=== PATIENT | female | born 1995 | race African-American/Black ===

== ENCOUNTER 2017-05-19 19:39 | Emergency (ER) | payer BC, OTHER ==
--- NOTE | 2017-05-19 21:18 | ER Document Report ---
HPI - HPI Patient complains to provider of: Left thumb cut Onset: This evening Onset/Duration: Sudden Pain Level: 3 Context: 22-year-old right-handed female with unknown tetanus status cut her left thumb while cooking dinner tonight. Associated Symptoms: None Exacerbated by: Movement Relieved by: Denies Similar symptoms previously: No Recently seen / treated by doctor: No - ROS ROS below otherwise negative: Yes Systems Reviewed and Negative: Yes All other systems reviewed and negative Past Medical History - General Information source: Patient - Social History Smoking Status: Never Smoker Frequency of alcohol use: None Drug Abuse: None Occupation: Unemployed Lives with: Spouse/Significant other Family History: None Patient has suicidal ideation: No Patient has homicidal ideation: No - Medical History Medical History: Negative Renal/ Medical History: Denies: Hx Peritoneal Dialysis Surgical Hx: Negative Vertical Provider Document - CONSTITUTIONAL Agree With Documented VS: Yes Exam Limitations: No Limitations - INFECTION CONTROL TRAVEL OUTSIDE OF THE [place] IN LAST 30 DAYS: No - HEENT HEENT: Normocephalic - NECK Neck: Supple - RESPIRATORY O2 Sat by Pulse Oximetry: 99 - MUSCULOSKELETAL/EXTREMETIES Musculoskeletal/Extremeties: MAEW, FROM, Tender - NEURO Level of Consciousness: Awake, Alert, Appropriate - DERM Integumentary: Laceration - 3 mm flap cut left tumb radial side of thumb tip, 1mm deep Course - Vital Signs Vital signs: Temp Pulse Resp BP Pulse Ox 98.3 F 78 16 106/57 L 99 05/19/17 19:49 05/19/17 19:49 05/19/17 19:49 05/19/17 19:49 05/19/17 19:49 Discharge - Discharge Clinical Impression: Minor left thumb cut Condition: Good Disposition: HOME, SELF-CARE Instructions: Acetaminophen, Antibiotic Ointment Protection ([facility]), Soap Cleansing ([facility]), Tetanus Immunization Given ([facility]) Additional Instructions: keep clean, soap and water daily, bacitracin, non stick dressing to er any signs of infection or concerns Please complete the patient satisfaction survey if you get one, and return it.. If you do not receive a survey, then you can go to the [facility] website, [email or web address] and place your comments about your very good care. Thank you very much. It was a pleasure being your medical provider today.
[2017-05-19] MEDS ORDERED: DIPH/PERTUSS(ACELL)/TETANUS VAC/PF 0.5 ML SYR (>=10YO) IM ONE (21:21)
[2017-05-19 21:48] VITALS: BP 97/45
== END 2017-05-19 21:45 | disposition home or self-care (01) ==
LOC: ER 19:39
DX: S61.021A Laceration with foreign body of right thumb without damage to nail, initial encounter (principal); W45.8XXA Other foreign body or object entering through skin, initial encounter; Y93.G3 Activity, cooking and baking; Z23 Encounter for immunization
CPT/HCPCS: 90471; 90715; 99283

== ENCOUNTER 2017-11-10 11:37 | Emergency (ER) | payer BC, OTHER ==
[2017-11-10 11:51] VITALS: BP 112/67
[2017-11-10] MEDS ORDERED: IBUPROFEN 800 MG TABLET PO ONE (11:56)
[2017-11-10] MEDS ORDERED: DEXAMETHASONE 4 MG TABLET PO ONE (11:56)
--- NOTE | 2017-11-10 12:00 | ER Document Report ---
ED ENT - General Chief Complaint: Sore Throat Stated Complaint: EAR/THROAT PAIN Time Seen by Provider: 11/10/17 11:56 Mode of Arrival: Ambulatory Information source: Patient Notes: 22-year-old female presents to ED for complaint of sore throat and right ear pain started yesterday. She states she had a fever of 103 yesterday 101 today. Her temperature in the emergency room is 99.1. Other vital signs are all stable. She has a negative medical history. She has never smoked never drank and works at a [employer]. States her last menstrual period was last week. TRAVEL OUTSIDE OF THE [place] IN LAST 30 DAYS: No - HPI Patient complains to provider of: Ear problem, Throat problem Onset: Yesterday Onset/Duration: Gradual Quality of pain: Sharp Severity: Moderate Pain Level: 3 Context: Recent Illness Location of pain: Ears, Nose, Sinus, Throat Associated symptoms: Ear pain, Fever, Runny nose, Sinus drainage, Sore throat Similar symptoms previously: Yes Recently seen / treated by doctor: No - Related Data Allergies/Adverse Reactions: No Known Allergies Allergy (Verified 11/10/17 11:42) Past Medical History - General Information source: Patient - Social History Smoking Status: Never Smoker Cigarette use (# per day): No Chew tobacco use (# tins/day): No Smoking Education Provided: No Frequency of alcohol use: None Drug Abuse: None Lives with: Spouse/Significant other Family History: None Patient has suicidal ideation: No Patient has homicidal ideation: No - Past Medical History Cardiac Medical History: Reports: None Pulmonary Medical History: Reports: None EENT Medical History: Reports: None Neurological Medical History: Reports: None Endocrine Medical History: Reports: None Renal/ Medical History: Reports: None Malignancy Medical History: Reports: None GI Medical History: Reports: None Musculoskeltal Medical History: Reports None Skin Medical History: Reports None Psychiatric Medical History: Reports: None Traumatic Medical History: Reports: None Infectious Medical History: Reports: None Surgical Hx: Negative Past Surgical History: Reports: None - Immunizations Immunizations up to date: Yes Review of Systems - Review of Systems Constitutional: Chills, Fever, Recent illness EENT: Ear pain, Nose discharge, Sinus discharge, Throat pain Cardiovascular: No symptoms reported Respiratory: No symptoms reported Gastrointestinal: No symptoms reported Genitourinary: No symptoms reported Female Genitourinary: No symptoms reported Musculoskeletal: No symptoms reported Skin: No symptoms reported Hematologic/Lymphatic: No symptoms reported Neurological/Psychological: No symptoms reported -: Yes All other systems reviewed and negative Physical Exam - Vital signs Vitals: Temp Pulse Resp BP Pulse Ox 99.1 F 80 18 112/67 99 11/10/17 11:48 11/10/17 11:48 11/10/17 11:48 11/10/17 11:48 11/10/17 11:48 Interpretation: Normal - General General appearance: Appears well, Alert - HEENT Head: Normocephalic, Atraumatic Eyes: Normal Pupils: PERRL Ears: Normal External canal: Normal Tympanic membrane: Normal Sinus: Normal Nasal: Purulent discharge, Swelling Mouth/Lips: Normal Mucous membranes: Normal Pharynx: Post nasal drainage, Tonsillar hypertrophy. No: Erythema, Exudate Neck: Anterior cervical chain - Respiratory Respiratory status: No respiratory distress Chest status: Nontender Breath sounds: Normal Chest palpation: Normal - Cardiovascular Rhythm: Regular Heart sounds: Normal auscultation Murmur: No - Abdominal Inspection: Normal Distension: No distension Bowel sounds: Normal Tenderness: Nontender Organomegaly: No organomegaly - Back Back: Normal, Nontender - Extremities General upper extremity: Normal inspection, Nontender, Normal color, Normal ROM , Normal temperature General lower extremity: Normal inspection, Nontender, Normal color, Normal ROM , Normal temperature, Normal weight bearing. No: Edwin's sign - Neurological Neuro grossly intact: Yes Cognition: Normal Orientation: AAOx4 Sushila Coma Scale Eye Opening: Spontaneous Monette Coma Scale Verbal: Oriented Monette Coma Scale Motor: Obeys Commands Sushila Coma Scale Total: 15 Speech: Normal Motor strength normal: LUE, RUE, LLE, RLE Sensory: Normal - Psychological Associated symptoms: Normal affect, Normal mood - Skin Skin Temperature: Warm Skin Moisture: Dry Skin Color: Normal Course - Re-evaluation Re-evalutation: 11/10/17 13:05 After performing a Medical Screening Examination, I estimate there is LOW risk for ACUTE CORONARY SYNDROME, RESPIRATORY FAILURE, SEPSIS OR MENINGITIS, thus I consider the discharge disposition reasonable. I have reevaluated this patient multiple times and no significant life threatening changes are noted. The patient and I have discussed the diagnosis and risks, and we agree with discharging home with close follow-up. We also discussed returning to the Emergency Department immediately if new or worsening symptoms occur. We have discussed the symptoms which are most concerning (e.g., changing or worsening pain, trouble swallowing or breathing, neck stiffness, fever) that necessitate immediate return. - Vital Signs Vital signs: Temp Pulse Resp BP Pulse Ox 99.1 F 80 18 112/67 99 11/10/17 11:48 11/10/17 11:48 11/10/17 11:48 11/10/17 11:48 11/10/17 11:48 Discharge - Discharge Clinical Impression: Viral sore throat URI (upper respiratory infection) Qualifiers: URI type: unspecified URI Qualified Code(s): J06.9 - Acute upper respiratory infection, unspecified Condition: Stable Disposition: HOME, SELF-CARE Additional Instructions: SORE THROAT: Sore throats may be caused by viruses, bacteria, or fungi. Most are due to a virus, and must get better on their own. Bacterial sore throats, particularly those due to "strep," need treatment with antibiotics. If an antibiotic is prescribed, be sure to take the medication for a full 10 days. Failure to take the antibiotic can result in complications such as rheumatic fever. Sometimes, an injection of antibiotics is given instead of pills or liquid. This single "shot" is equal in effectiveness to the oral medication. To relieve symptoms, take acetaminophen for pain. Sip clear liquids frequently, or eat popsicles or ice chips. Anesthetic sprays or lozenges may help. Make sure the air in the room is not too dry. Avoid using decongestants or antihistamines. Call the doctor if there is no improvement in two days, or if you have difficulty breathing, increasing throat pain, high fever, rash, or frequent vomiting. UPPER RESPIRATORY ILLNESS: You have a viral infection of the respiratory passages -- a "cold." This common infection causes nasal congestion, drainage, and often sore throat and cough. It is highly contagious. The disease usually lasts about 10 to 14 days. There is no "cure" for the viral infection -- it must run its course. If there is a complication, such as bacterial infection in the nose, sinuses, middle ear, or bronchial tubes, antibiotics may be required. The antibiotics won't affect the virus. Drink plenty of fluids. A humidifier may help. An expectorant medication or decongestant may make you more comfortable. Use acetaminophen or ibuprofen for fever or aches. See the doctor if fever persists over two days, if there is any significant worsening of your symptoms, or if you simply fail to improve as expected. DECONGESTANT MEDICATION: A decongestant medicine has been suggested. Often this medicine is combined in the same tablet with an antihistamine or expectorant. This type of medicine is helpful in treating a bad cold or sinus condition, as well as in treatment of the nasal congestion of hay fever. It is not of much benefit for lung infections. Decongestant medicines are related to stimulants. They can cause an increase in blood pressure and heart rate. Persons with heart disease and high blood pressure should not take decongestants without discussing this with the physician. If you develop palpitations, chest pain, headache, or tremors, stop the medicine and consult your physician. STEROID MEDICATION: You have been given an injection of or oral medicine of the cortisone/ steroid class. This medication is used to control inflammation or allergy. Eron t is usually only given for a short period of time, until the acute process subsides. There are usually no side effects from short-term use of cortisone-like medications. Some persons feel an increased sense of well-being and are not sleepy at bedtime. Long-term use of cortisone medications is best avoided, unless required for a severe condition. If your condition does not remit, or relapses after the course of corticosteroid medication, you should consult your physician. USE OF ACETAMINOPHEN (Tylenol): Acetaminophen may be taken for pain relief or fever control. It's much safer than aspirin, offering a wider range of "safe" dosages. It is safe during . Some brand names are Tylenol, Panadol, Datril, Anacin 3, Tempra, and Liquiprin. Acetaminophen can be repeated every four hours. The following are maximum recommended dosages: >89 pounds or adults 650 mg to 900 mg Acetaminophen can be repeated every four hours. Maximum dose not to exceed 4000 mg a day. Anti-Inflammatory Medication You have received a prescription for an antiinflammatory agent. This is an excellent, safe drug for pain control. In addition, it has potent antiinflammatory effects which are beneficial, especially in the treatment of injuries, arthritis, or tendonitis. It's best to take this medicine with food. Persons with ulcer disease or allergy to aspirin should notify their physician of this before taking this drug. Take the medication exactly as prescribed. Don't take additional doses unless instructed to do so by your doctor. If you develop wheezing, shortness of breath, hives, faintness, stomach pain, vomiting, or dark black stools, return for re-evaluation at once. FOLLOW-UP CARE: If you have been referred to a physician for follow-up care, call the physician s office for an appointment as you were instructed or within the next two days. If you experience worsening or a significant change in your symptoms, notify the physician immediately or return to the Emergency Department at any time for re-evaluation. Forms: Return to Work Referrals: EMIR SCHNEIDER PA-C [Primary Care Provider] - Follow up as needed
== END 2017-11-10 13:05 | disposition home or self-care (01) ==
LOC: ER 11:37
DX: J02.8 Acute pharyngitis due to other specified organisms (principal); B97.89 Other viral agents as the cause of diseases classified elsewhere; H92.01 Otalgia, right ear; R50.9 Fever, unspecified; R09.82 Postnasal drip
CPT/HCPCS: 87070; 87880; 99282

== ENCOUNTER 2017-11-25 10:22 | Day surgery (SDC) | payer OTHER ==
[~2017-11-25 10:22] MED LIST: BUPIVACAINE HCL 0.5 % INJ/PF 30 ML SDV ONE; CEFAZOLIN 2 GM/D5W RTU 2 GM/50 ML RTUPB IV PRN; LACTATED RINGERS 1000 ML IV PRN; LIDOCAINE 0.5% INJ-PF (5 MG/ML) 50 ML SDV SUBCUT PRN; LIDOCAINE 1% INJ-PF (10 MG/ML) 30 ML SDV ONE
[2017-11-25] MEDS ORDERED: FENTANYL CITRATE INJ/PF 250 MCG/5 ML AMPULE ONE (11:56)
[2017-11-25] MEDS ORDERED: MIDAZOLAM 2 MG/2 ML INJ ONE (11:57)
[2017-11-25] MEDS ORDERED: PROPOFOL INJ 200 MG/20 ML VIAL IV ONE (11:57)
[2017-11-25] MEDS ORDERED: ONDANSETRON HCL INJ/PF 4 MG/2 ML SDV ONE (11:57)
[2017-11-25] MEDS ORDERED: DEXAMETHASONE SOD PHOSPHATE INJ 4 MG/1 ML VIAL ONE (11:57)
[2017-11-25] MEDS ORDERED: MEPERIDINE HCL/PF INJ 25 MG/1 ML DISP.SYRIN IV PRN (12:59)
[2017-11-25] MEDS ORDERED: OXYCODONE-ACETAMINOPHEN 5-325 MG TABLET PO PRN ×2 (12:59)
[2017-11-25] MEDS ORDERED: PROMETHAZINE HCL INJ 25 MG/1 ML VIAL IV PRN ×2 (12:59)
[2017-11-25] MEDS ORDERED: DIPHENHYDRAMINE HCL 50 MG/ML VIAL IV PRN (12:59)
[2017-11-25] MEDS ORDERED: FENTANYL CITRATE INJ/PF 100 MCG/2 ML AMPUL IV PRN ×3 (12:59)
[2017-11-25] MEDS ORDERED: ONDANSETRON HCL INJ/PF 4 MG/2 ML SDV IV PRN (13:20)
[2017-11-25] MEDS ORDERED: HYDROCODONE/ACETAMINOPHEN 5-325 MG TABLET PO PRN (13:20)
[2017-11-25] MEDS ORDERED: MORPHINE SULFATE 10 MG/ML INJ IV PRN (13:20)
--- NOTE | 2017-11-25 13:20 | Operative Report ---
Operative Report DATE OF SURGERY: 11/25/17 PREOPERATIVE DIAGNOSIS: Right carpal/cubital tunnel syndrome POSTOPERATIVE DIAGNOSIS: Same OPERATION: 1. Right in situ cubital tunnel release. 2. Right endoscopic carpal tunnel release SURGEON: BRANDYN HENLEY ANESTHESIA: GA COMPLICATIONS: None ESTIMATED BLOOD LOSS: Minimal PROCEDURE: Indication for above procedure: [id number]year-old female with history of numbness and tingling in her right upper extremity. Neurodiagnostic testing demonstrated carpal tunnel syndrome patient furthermore had subjective findings of cubital tunnel syndrome as well. We attempted conservative measures including bracing and injections which provided short but not long-term relief. After discussing treatment options including continued conservative management versus operative treatment decision was made to proceed with operative intervention. Procedure In Detail: Patient was seen and evaluated in the preoperative holding area. The RIGHT upper extremity was initialized and marked. Patient received 2g of Ancef IV for bacterial prophylaxis. Patient was taken back to the operative room where transferred to the operative table and placed under general anesthesia. Once they were adequately anesthetized and a nonsterile tourniquet was placed on the upper extremity. A surgical team debriefing was performed ensuring all instrumentation was available, the surgical procedure was discussed with possible concerns reviewed. The upper extremity was prepped with chlorhexidine and alcohol and draped in a sterile fashion. A timeout was done identifying correct patient, procedure and extremity everyone in attendance agree with this and verbalized no concerns. The extremity was exsanguinated the tourniquet was inflated to 250 mmHg. A longitudinal skin incision was made centered over the cubital tunnel. Careful dissection was done through the overlying soft tissues any peripheral vasculature was carefully coagulated with bipolar cautery. The branches of the medial antebrachial cutaneous nerve were identified and protected throughout the entirety of the case. Once within the confines of the cubital tunnel the ulnar nerve was identified at the proximal aspect of the wound. At this level I carefully released a medial portion of the triceps and the medial intermuscular septum freeing the ulnar nerve proximally of any overlying soft tissue compression. I then continued to track the ulnar nerve distally releasing Cabral's fascia. At the level of the FCU aponeurosis between the 2 heads of the FCU muscle the fascia was released once again relieving any external compression from the ulnar nerve distally past the level of the first motor branch. Maximal point of compression was evident posterior to the medial epicondyle. Further dissection distally past the first motor branch demonstrated no evidence of residual fascial bands causing compression. I then freed up the nerve posteriorly ensuring there is no remaining soft tissue bands causing compression. During dissection of the nerve careful attention was directed at avoiding disruption of the ulnar nerve blood supply. Elbow range of motion was then done from full flexion to full extension with full flexion there was no evidence of anterior subluxation of the ulnar nerve from the groove. And thus I determined patient would not require anterior subcutaneous ulnar nerve transposition I then proceeded with carpal tunnel release. A transverse skin incision was made just proximal to the wrist flexion crease ulnar to the palmaris longus. Blunt dissection was performed down to the palmaris longus tendon which was retracted radially. Deep to the palmaris longus tendon was the volar carpal ligament this was incised identifying the median nerve deep. With the use of a Trivoli elevator any soft tissue/synovium was freed from the undersurface of the transverse carpal ligament. The hook of hamate was identified ulnarly. The ConMed cannulas were then introduced beginning with #1 progressing to a #3 gently dilating the carpal canal. I then introduced the scope within the cannula and identified transverse carpal ligament ensuring the median nerve was not visualized within the cannula. I triangulated distally with a 25-gauge needle identifying the distal aspect of the transverse carpal ligament, to ensure protection of the superficial palmar arch. The arthroscopic knife was used to incise the transverse carpal ligament under direct visualization with the arthroscopic camera. Any excess transverse fibers that remained after the first past were carefully released with a repeat pass. The median nerve was then directly visualized radially without disruption. Once this was completed I placed the #3 dilator and assured I got complete release of the transverse carpal ligament without residual compression. The median nerve was directly visualized and free of any overlying compression. I then turned my attention to release of the volar antebrachial fascia proximally. Once again a Trivoli was used to open the wound and I proceeded with cannula #1 to #3. The arthroscope was introduced into the cannula and under direct visualization the volar antebrachial fascia was released. Once this was complete I copiusly irrigated the wound with normal saline. The skin incision was closed with 4-0 Monocryl subcutaneous and a running subcuticular 4-0 Monocryl. This was later reinforced with Dermabond and Steri-Strips. The tourniquet was then deflated. Compression was made to the wound for 2 minutes. I then identified any peripheral bleeding and carefully coagulated with bipolar cautery. The wound was then irrigated with normal saline. Subcutaneous tissues were closed with interrupted 4-0 Monocryl. Skin was closed a horizontal mattress interrupted 3-0 nylon suture. 20 cc of 0.5% Marcaine without epinephrine was injected in the carpal and cubital tunnel surgical sites. Sponge counts, instrument counts, needle counts counts were correct. Patient was then awoken from anesthesia. Transferred from the operating room table to the operating room stretcher. There was no intraoperative complications patient tolerated procedure well stable to PACU. Postoperative plan: Patient will follow-up in the office as scheduled which point we will proceed with wound check. She may begin gentle range of motion exercises but avoid any heavy lifting at her first postoperative appointment.
[2017-11-25] MEDS ORDERED: ACETAMINOPHEN 100 ML IV ONE (13:41)
[2017-11-25] MEDS ORDERED: KETOROLAC TROMETHAMINE INJ/PF 30 MG/1 ML SDV ONE (13:41)
[2017-11-25 16:32] VITALS: BP 104/77
--- NOTE | 2017-11-28 16:43 | Discharge Summary ---
Discharge Summary (SDC) - Discharge Final Diagnosis: Right carpal/cubital tunnel syndrome Date of Surgery: 11/25/17 Discharge Date: 11/25/17 Treatment or Instructions: Schedule Follow Up w/ Dr. Ramírez Yu @ [facility] to be seen in 10-14 days or as scheduled Logan: Stanley: Fre[place]: May remove dressing on postop day #3, keep incision covered and dry. Ice and elevate May begin finger range of motion attempting to make full fist. Stool softener of choice when on pain medication. Prescriptions: Hydrocodone/Acetaminophen [Reynolds 5-325 mg Tablet] 1 tab PO Q6 PRN #15 tablet PRN Reason: Referrals: EMIR SCHNEIDER PA-C [Primary Care Provider] - Discharge Diet: As Tolerated Respiratory Treatments at Home: Deep Breathing/Coughing Discharge Activity: No Lifting Over 10 Pounds, No Lifting/Push/Pulling Report the Following to Your Physician Immediately: Fever over 101 Degrees, Unusual Bleeding, Redness, Swelling, Warmth, Increased Soreness
== END 2017-11-25 16:30 | disposition home or self-care (01) ==
LOC: OROUT 10:22
PROVIDERS: ATTEND Orthopaedic Surgery
DX: G56.21 Lesion of ulnar nerve, right upper limb (principal); G56.01 Carpal tunnel syndrome, right upper limb; M79.641 Pain in right hand
CPT/HCPCS: 81025; 29848; 64718; J2250; J3490 ×2; J1100; J3010; J1885; J2405; J2704; J0690; J0131; 1810